=== PATIENT | male | born 1975 | race Caucasian/White ===

== ENCOUNTER 2016-11-03 15:20 | Emergency (ER) | payer OTHER ==
[~2016-11-03] VITALS: Ht 165.1 cm; Wt 90.0 kg
[~2016-11-03 15:20] MED LIST: HYDR-3533 PO
[2016-11-03 15:43] VITALS: BP 129/89; PULSE 78; RESP 18; TEMP 98.8; O2SAT 99
== END 2016-11-03 16:47 | disposition left against medical advice (07) ==
LOC: PHEFT 15:20
DX: S69.91XA Unspecified injury of right wrist, hand and finger(s), initial encounter (principal); X58.XXXA Exposure to other specified factors, initial encounter
CPT/HCPCS: 99281

== ENCOUNTER 2016-11-18 07:46 | Emergency (ER) | payer OTHER ==
[~2016-11-18] VITALS: Ht 167.6 cm; Wt 88.5 kg
[2016-11-18 07:57] VITALS: BP 128/88; PULSE 72; RESP 16; TEMP 98.8; O2SAT 97
--- NOTE | 2016-11-18 08:10 | PD ---
HPI Chief Complaint: Musculoskeletal Complaint Time Seen by Provider: 08:05 Travel History International Travel<30 days: No Contact w/Intl Traveler<30days: No Traveled to known affect area: No History of Present Illness HPI The patient is a 41-year-old male who presents emergency department for finger pain. The patient developed pain located over the proximal interphalangeal joint of the fourth digit on the right hand after he fell off a ladder before 2015. Patient had pain located over the ulnar aspect of the PIP, however, was not evaluated in the emergency department at that time. The patient continues to have pain is worsen movement, minimally alleviated at rest, with mildly limited range of motion. The patient is right- hand dominant. The patient denies any abrasions or lacerations of the affected area. Symptoms are mild to moderate, exacerbated after trauma, and minimally alleviated at rest. PFSH Past Medical History Medical History: Denies Significant Hx Diminished Hearing: No Tetanus Vaccination: > 5 Years Influenza Vaccination: No Past Surgical History Appendectomy: Yes Social History Alcohol Use: No Tobacco Use: No (QUIT 2011) Substance Use: No Allergies-Medications (Allergen,Severity, Reaction): Coded Allergies: No Known Allergies (Unverified , 11/18/16) Reported Meds & Prescriptions Reported Meds & Active Scripts Active No Active Prescriptions or Reported Medications Review of Systems Musculoskeletal: Positive: Pain Skin: No Other (no abrasions or lacerations over the affected area) Neurologic: No: Paresthesia, Sensory Disturbance Physical Exam Narrative GENERAL: Awake, alert, 41-year-old male who appears his stated age and is in no acute respiratory distress. SKIN: Warm and dry. HEAD: Atraumatic. Normocephalic. EYES: No injection or drainage. NECK: Trachea midline. No JVD. MUSCULOSKELETAL: Inspection of fourth digit right hand reveals minimal edema over the proximal interphalangeal joint. The patient is able flex at the MCP, PIP, and DIP. Mild tenderness over the ulnar aspect of the PIP. No obvious bony deformity. Her refills less than 2 seconds. Positive right radial pulse. No erythema or fluctuance noted over the joint. NEUROLOGICAL: Awake and alert. No obvious cranial nerve deficits. Motor grossly within normal limits. Normal speech. PSYCHIATRIC: Appropriate mood and affect; insight and judgment normal. Data Data Last Documented VS Vital Signs Date Time Temp Pulse Resp B/P Pulse Ox O2 Delivery O2 Flow Rate FiO2 11/18/16 07:57 98.8 72 16 128/88 97 Orders Finger (Hpn1new) (11/18/16 ) MDM Medical Decision Making Medical Screen Exam Complete: Yes Emergency Medical Condition: Yes Medical Record Reviewed: Yes Interpretation(s) X-ray of the fourth digit right finger reveals no evidence of acute fracture. Differential Diagnosis Differential diagnosis includes sprain, strain, fracture, contusion, effusion. Narrative Course X-ray of the fourth digit, right hand was obtained. X-ray is negative for fracture. The patient is advised activity as tolerated. Ibuprofen as needed. Follow-up with your primary physician. Return if symptoms worsen or progress. Diagnosis Primary Impression: Finger pain, right Patient Instructions: General Instructions Additional Instructions: Activity as tolerated. Motrin as directed. Follow-up with your primary physician. Return if symptoms worsen or progress. Med/Other Pt SpecificInfo: Prescription(s) given Scripts Ibuprofen 600 Mg [id number] Mg PO Q6H PRN (Pain/Inflammation) #20 TAB Ref 0 Prov:Moise Velez MD 11/18/16 Disposition: 01 DISCHARGE HOME Condition: Stable Moise Velez MD Nov 18, 2016 08:10
--- NOTE | 2016-11-18 08:47 | RADHPO ---
EXAM DATE/TIME: 11/18/2016 08:13 [facility] COMPARISON: No previous studies available for comparison. INDICATIONS : Right 4th digit pain after fall from a ladder. MEDICAL HISTORY : None. SURGICAL HISTORY : None. ENCOUNTER: Initial ACUITY: 1 month PAIN SCORE: 4/10 LOCATION: Right 4th digit FINDINGS: Examination of the fourth digit of the right hand demonstrates no evidence of fracture or dislocation . No radiopaque foreign bodies are seen. The soft tissues are intact. CONCLUSION: 1. There is no evidence of acute fracture. Russell Beltran MD on November 18, 2016 at 8:44 Board Certified Radiologist. This report was verified electronically.
[2016-11-18] MEDS ORDERED: IBUP-232 PO (08:51)
== END 2016-11-18 09:09 | disposition home or self-care (01) ==
LOC: PHED 07:46
DX: M79.644 Pain in right finger(s) (principal); W11.XXXD Fall on and from ladder, subsequent encounter; Y93.9 Activity, unspecified; Y92.59 Other trade areas as the place of occurrence of the external cause
CPT/HCPCS: 73140; 99283

== ENCOUNTER 2016-12-10 16:59 | Emergency (ER) | payer OTHER ==
[~2016-12-10] VITALS: Ht 165.1 cm; Wt 89.0 kg
[~2016-12-10 16:59] MED LIST changes: -HYDR-3533 PO; +IBUP-232 PO
[2016-12-10 17:05] VITALS: BP 116/73; PULSE 72; RESP 16; TEMP 98.3; O2SAT 100
[2016-12-10] MEDS ORDERED: PRED50 PO (18:24)
[2016-12-10] MEDS ORDERED: CYCL1TAB29 PO (18:24)
[2016-12-10] MEDS ORDERED: IBUP800T23 PO (18:24)
--- NOTE | 2016-12-10 18:25 | PD ---
HPI Chief Complaint: Back/ Neck Pain or Injury Time Seen by Provider: 18:11 Travel History International Travel<30 days: No Contact w/Intl Traveler<30days: No Traveled to known affect area: No History of Present Illness HPI Patient is a 41-year-old male presenting to the emergency department for evaluation of left lower back pain that started yesterday. Patient states he has a history of degenerative disc disease. He reports his pain as a 6 out of 10. Patient states he comes to emergency department when it exacerbates him as he does not have a primary doctor. Patient denies any numbness or tingling in his lower extremities, no bladder or bowel incontinence, no saddle paresthesia. He denies any injury or trauma. PFSH Past Medical History Diminished Hearing: No Musculoskeletal: Yes (degenerative disc disease) Tetanus Vaccination: < 5 Years Influenza Vaccination: No Past Surgical History Appendectomy: Yes Social History Alcohol Use: No Tobacco Use: No (QUIT 2011) Substance Use: No Allergies-Medications (Allergen,Severity, Reaction): Coded Allergies: No Known Allergies (Unverified , 12/10/16) Reported Meds & Prescriptions Reported Meds & Active Scripts Active No Active Prescriptions or Reported Medications Review of Systems Except as stated in HPI: all other systems reviewed are Neg Musculoskeletal: Positive: Myalgias, Cramping Physical Exam Narrative GENERAL: Well-nourished, well-developed patient. SKIN: Warm and dry. HEAD: Normocephalic. EYES: No scleral icterus. No injection or drainage. NECK: Supple, trachea midline. No JVD or lymphadenopathy. CARDIOVASCULAR: Regular rate and rhythm without murmurs, gallops, or rubs. RESPIRATORY: Breath sounds equal bilaterally. No accessory muscle use. GASTROINTESTINAL: Abdomen soft, non-tender, nondistended. MUSCULOSKELETAL: No cyanosis, or edema. Tenderness to palpation paraspinal musculature in the lumbar region on the left. 5/5 muscle strength in bilateral lower extremities. No spinal tenderness noted. Neurovascularly intact. BACK: Nontender without obvious deformity. No CVA tenderness. Data Data Last Documented VS Vital Signs Date Time Temp Pulse Resp B/P Pulse Ox O2 Delivery O2 Flow Rate FiO2 12/10/16 17:05 98.3 72 16 116/73 100 MDM Medical Decision Making Medical Screen Exam Complete: Yes Emergency Medical Condition: Yes Interpretation(s) Vital Signs Date Time Temp Pulse Resp B/P Pulse Ox O2 Delivery O2 Flow Rate FiO2 12/10/16 17:05 98.3 72 16 116/73 100 Differential Diagnosis Strain versus sprain versus spasm versus discogenic pain Narrative Course Patient is a 41-year-old male who presents emergency for evaluation of low back pain that started yesterday. There was no injury or trauma. Patient is neurovascularly intact. Patient is neurologically intact. Patient has history of the same pain, when it exacerbates he presents emergency department. Patient will be given prescription for ibuprofen, Flexeril, prednisone. He is encouraged to establish care with a primary doctor for ongoing evaluation and management of his chronic health problems and for routine health care. He was encouraged to alternate heat and ice to affected area, continue range of motion exercises, avoid bed rest. He was further encouraged to avoid exacerbating activities. Patient again should follow-up with the primary doctor. Patient can return to the emergency department for any new or worsening symptoms. Patient is stable for discharge. Diagnosis Primary Impression: Strain of lumbar paraspinal muscle Qualified Code: S39.012A - Strain of lumbar paraspinal muscle, initial encounter Additional Impression: Spasm of lumbar paraspinous muscle Referrals: Primary Care Physician Patient Instructions: General Instructions, Muscle Spasm (ED), Muscle Strain ( ED) Additional Instructions: Follow-up with your primary doctor Return to emergency department for any new or worsening symptoms Take medications as directed Alternate heat and ice to affected area, continue range of motion exercises, avoid exacerbating activities Med/Other Pt SpecificInfo: Prescription(s) given Scripts Prednisone 50 Mg Tab50 Mg PO DAILY #5 TAB Ref 0 Prov:Roxi Elizondo 12/10/16 Cyclobenzaprine (Flexeril)10 Mg Tab10 Mg PO TID PRN (MUSCLE SPASM) 10 Days Ref 0 Prov:Roxi Elizondo 12/10/16 Ibuprofen 800 Mg [id number] Mg PO Q6HR PRN (PAIN) #40 TAB Ref 0 Prov:Roxi Elizondo 12/10/16 Disposition: 01 DISCHARGE HOME Condition: Stable Roxi Elizondo Dec 10, 2016 18:24
== END 2016-12-10 18:33 | disposition home or self-care (01) ==
LOC: PHEFT 16:59
DX: S39.012A Strain of muscle, fascia and tendon of lower back, initial encounter (principal); M51.36 Other intervertebral disc degeneration, lumbar region; X58.XXXA Exposure to other specified factors, initial encounter; Y93.9 Activity, unspecified; Y92.9 Unspecified place or not applicable
CPT/HCPCS: 99283

== ENCOUNTER 2017-02-19 02:11 | Emergency (ER) | payer OTHER ==
[~2017-02-19] VITALS: Ht 165.1 cm; Wt 87.1 kg
[~2017-02-19 02:11] MED LIST changes: +CYCL1TAB29 PO; -IBUP-232 PO; +IBUP800T23 PO; +PRED50 PO
[2017-02-19 02:17] VITALS: BP 133/77; PULSE 72; RESP 18; TEMP 97.6; O2SAT 99
[2017-02-19 02:24] VITALS: BP 133/77; PULSE 72; RESP 18; TEMP 97.6; O2SAT 99
[2017-02-19] MEDS: CYCLOPENTOLATE HCL 1% OPHT SOLN 2 ML BTL LEFT EYE ONE ×2 (02:45→02:55)
[2017-02-19] MEDS ORDERED: PERC5TAB12 PO (03:11)
--- NOTE | 2017-02-19 03:14 | PD ---
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 The patient had initial pain but the pain seemed to get worse and he comes in tonight complaining of pain not just in the eye but around the eye and he feels pain above the mouth and above the eye. PFSH Past Medical History Diminished Hearing: No Musculoskeletal: Yes (degenerative disc disease) Immunizations Current: Yes Tetanus Vaccination: Unknown Influenza Vaccination: No Past Surgical History Appendectomy: Yes Social History Alcohol Use: No Tobacco Use: No (QUIT 2011) Substance Use: No Allergies-Medications (Allergen,Severity, Reaction): Coded Allergies: No Known Allergies (Unverified , 02/19/17) Reported Meds & Prescriptions Reported Meds & Active Scripts Active Review of Systems Except as stated in HPI: all other systems reviewed are Neg Physical Exam Narrative GENERAL: Well-nourished, well-developed patient in moderate apparent distress with his left eye pain. His vital signs are normal. SKIN: Focused skin assessment warm/dry. HEAD: Normocephalic. EYES: The visual acuity is 20/70 in the left eye and 20/40 in the right eye. No scleral icterus. No injection in the right eye but there is injection in the left eye. Fluorescein staining reveals no corneal uptake. Lids/tarsal plate were everted and no foreign body seen. Extraocular movements are normal but the patient has considerable pain when moving the eye nasally and temporarily. There is no diplopia present. The pupil is one millimeter larger on the left than on the right. There is no proptosis present. NECK: Supple, trachea midline. No JVD or lymphadenopathy. CARDIOVASCULAR: Regular rate and rhythm without murmurs, gallops, or rubs. RESPIRATORY: Breath sounds equal bilaterally. No accessory muscle use. GASTROINTESTINAL: Abdomen soft, non-tender, nondistended. MUSCULOSKELETAL: No cyanosis, or edema. BACK: Nontender without obvious deformity. No CVA tenderness. Data Data Last Documented VS Vital Signs Date Time Temp Pulse Resp B/P Pulse Ox O2 Delivery O2 Flow Rate FiO2 4/20/17 02:24 97.6 72 18 133/77 99 Orders Cyclopentolate 1% Opth Soln (Cyclogyl 1% (02/19/17 02:45) MDM Medical Decision Making Medical Screen Exam Complete: Yes Emergency Medical Condition: Yes Medical Record Reviewed: Yes Differential Diagnosis Corneal abrasion, traumatic mydriasis, irritation of extraocular muscles Narrative Course I discussed the patient with Dr. Kerr who is missionary coordinator for ophthalmology tonight. She will see the patient later on today in her office. The patient is to call later on this morning to set up that appointment. He is given Percocet 5 for pain. He is not to drink alcohol or drive with this condition are on the Percocet. The patient's pain appears to be more than I would expect from his physical findings and history. Diagnosis Primary Impression: Trauma to left eye Additional Impression: Traumatic mydriasis Additional Instructions: Later on today it is necessary to call the coin counter and wrapper office to set up an appointment today. I discussed this with the coin counter and wrapper and she will see you in her office today. Do not drink alcohol or drive on the Percocet 5 Med/Other Pt SpecificInfo: Prescription(s) given Scripts Oxycodone-Acetaminophen (Percocet)5-325 mg Tab1-2 Tab PO Q4H PRN (PAIN) #30 TAB Ref 0 Prov:Josh Bailon MD 02/19/17 Disposition: 01 DISCHARGE HOME Condition: Stable Josh Bailon MD Feb 19, 2017 03:14
[2017-02-19] MEDS ORDERED: oxyCODONE/ACETAMINOPHEN 10 MG/325 MG TAB PO ONE (03:15)
[2017-02-19 03:33] VITALS: BP 137/77; PULSE 64; RESP 18; O2SAT 99
[2017-02-19 04:30] VITALS: BP 135/72; PULSE 62; RESP 18; O2SAT 98
== END 2017-02-19 04:46 | disposition home or self-care (01) ==
LOC: PHED 02:11
DX: H57.04 Mydriasis (principal); Z87.891 Personal history of nicotine dependence; W22.8XXA Striking against or struck by other objects, initial encounter; Y93.89 Activity, other specified; Y92.9 Unspecified place or not applicable; Y99.0 Civilian activity done for income or pay
CPT/HCPCS: 99283

== ENCOUNTER 2017-03-26 17:01 | Observation (INO) | payer OTHER ==
[2017-03-26] VITALS (9 sets, daily range): BP systolic 125–142; BP diastolic 72–97; PULSE 58–88; RESP 18–20; TEMP 98.6; O2SAT 94–99
[~2017-03-26 17:01] MED LIST changes: -CYCL1TAB29 PO; -IBUP800T23 PO; +PERC5TAB12 PO; -PRED50 PO
--- NOTE | 2017-03-26 17:15 | PD ---
HPI Chief Complaint: Chest Pain Time Seen by Provider: 17:07 Travel History International Travel<30 days: No Contact w/Intl Traveler<30days: No Traveled to known affect area: No History of Present Illness HPI 41-year-old male complains of chest pain. Patient states that the pain started yesterday afternoon. Patient states that the pain is substernal chest pressure with radiation to the back, to the jaw and to her left shoulder. Patient went to sleep last night and woke up this morning without chest pain. Patient states that the pain came back this morning on the way to work. Patient denies any coughing congestion fever chills. Patient denies any nausea or diaphoresis. Patient denies history of CAD. Patient denies history hypertension, diabetes, dyslipidemia. Patient is a nonsmoker. Patient has family history of heart disease. On a scale of 1-10 the pain is a 6 now. PFSH Past Medical History Medical History: Denies Significant Hx Diminished Hearing: No Musculoskeletal: Yes (degenerative disc disease) Immunizations Current: Yes Influenza Vaccination: No Past Surgical History Appendectomy: Yes Social History Alcohol Use: No ( QUIT 2011) Tobacco Use: No (QUIT 2011) Substance Use: No Allergies-Medications (Allergen,Severity, Reaction): Coded Allergies: No Known Allergies (Unverified , 03/26/17) Reported Meds & Prescriptions Reported Meds & Active Scripts Active No Active Prescriptions or Reported Medications Review of Systems General / Constitutional: No: Fever Eyes: No: Visual changes HENT: No: Headaches Cardiovascular: Positive: Chest Pain or Discomfort Respiratory: No: Shortness of Breath Gastrointestinal: No: Abdominal Pain Genitourinary: No: Dysuria Musculoskeletal: No: Pain Skin: No Rash Neurologic: No: Weakness Psychiatric: No: Depression Endocrine: No: Polydipsia Hematologic/Lymphatic: No: Easy Bruising Physical Exam Narrative GENERAL: Well-nourished, well-developed patient. SKIN: Focused skin assessment warm/dry. HEAD: Normocephalic. EYES: No scleral icterus. No injection or drainage. NECK: Supple, trachea midline. No JVD or lymphadenopathy. CARDIOVASCULAR: Regular rate and rhythm without murmurs, gallops, or rubs. RESPIRATORY: Breath sounds equal bilaterally. No accessory muscle use. GASTROINTESTINAL: Abdomen soft, non-tender, nondistended. MUSCULOSKELETAL: No cyanosis, or edema. BACK: Nontender without obvious deformity. No CVA tenderness. Neurologic exam normal. Data Data Last Documented VS Vital Signs Date Time Temp Pulse Resp B/P Pulse Ox O2 Delivery O2 Flow Rate FiO2 03/26/17 19:03 58 20 Room Air 03/26/17 19:03 125/80 98 03/26/17 17:06 98.6 Orders Electrocardiogram (03/26/17 17:07) Complete Blood Count With Diff (03/26/17 17:07) Comprehensive Metabolic Panel (03/26/17 17:07) Creatine Kinase (Cpk) (03/26/17 17:07) Troponin I (03/26/17 17:07) Prothrombin Time / Inr (Pt) (03/26/17 17:07) Act Partial Throm Time (Ptt) (03/26/17 17:07) D-Dimer (03/26/17 17:07) Chest, Single Ap (03/26/17 17:07) Iv Access Insert/Monitor (03/26/17 17:07) Ecg Monitoring (03/26/17 17:07) Oximetry (03/26/17 17:07) Ct Pulmonary Angiogram (03/26/17 17:07) Aspirin (Aspirin) (03/26/17 17:30) Iohexol 350 Inj (Omnipaque 350 Inj) (03/26/17 18:13) Activity Bed Rest With Brp (03/26/17 18:56) Vital Signs (Adult) Q4H (03/26/17 18:56) Cardiac Rhythm .As Directed (03/26/17 18:56) Notify Dr: Other .PRN (03/26/17 18:56) Notify Parameters (03/26/17 18:56) Resp Oxygen Nasal Cannula (03/26/17 ) Diet Heart Healthy (03/26/17 Dinner) Ckmb (Isoenzyme) Profile (03/26/17 20:05) Ckmb (Isoenzyme) Profile (03/26/17 23:05) Troponin I (03/26/17 20:05) Troponin I (03/26/17 23:05) Electrocardiogram (03/26/17 20:05) Electrocardiogram (03/26/17 23:05) ^ Obtain (03/26/17 18:56) Sodium Chloride 0.9% Flush (Ns Flush) (03/26/17 19:00) Sodium Chloride 0.9% Flush (Ns Flush) (03/26/17 21:00) Acetaminophen (Tylenol) (03/26/17 19:00) Ondansetron Inj (Zofran Inj) (03/26/17 19:00) Policy Value Calculator / Telemetry PILAR.Q8H (03/26/17 18:56) Morphine Inj (Morphine Inj) (03/26/17 19:15) Ondansetron Inj (Zofran Inj) (03/26/17 19:15) Labs Laboratory Tests Test 03/26/17 17:05 White Blood Count 7.7 TH/MM3 Red Blood Count 4.69 MIL/MM3 Hemoglobin 14.3 GM/DL Hematocrit 42.5 % Mean Corpuscular Volume 90.6 FL Mean Corpuscular Hemoglobin 30.5 PG Mean Corpuscular Hemoglobin 33.7 % Concent Red Cell Distribution Width 13.0 % Platelet Count 260 TH/MM3 Mean Platelet Volume 7.9 FL Neutrophils (%) (Auto) 55.1 % Lymphocytes (%) (Auto) 34.0 % Monocytes (%) (Auto) 7.1 % Eosinophils (%) (Auto) 3.1 % Basophils (%) (Auto) 0.7 % Neutrophils # (Auto) 4.3 TH/MM3 Lymphocytes # (Auto) 2.6 TH/MM3 Monocytes # (Auto) 0.5 TH/MM3 Eosinophils # (Auto) 0.2 TH/MM3 Basophils # (Auto) 0.1 TH/MM3 CBC Comment DIFF FINAL Differential Comment Prothrombin Time 10.4 SEC Prothromb Time International 0.9 RATIO Ratio Activated Partial 27.5 SEC Thromboplast Time D-Dimer Quantitative (PE/DVT) LESS THAN 0.19 MG/L FEU Sodium Level 143 MEQ/L Potassium Level 3.6 MEQ/L Chloride Level 108 MEQ/L Carbon Dioxide Level 26.8 MEQ/L Anion Gap 8 MEQ/L Blood Urea Nitrogen 13 MG/DL Creatinine 1.20 MG/DL Estimat Glomerular Filtration 66 ML/MIN Rate Random Glucose 106 MG/DL Calcium Level 8.8 MG/DL Total Bilirubin 0.3 MG/DL Aspartate Amino Transf 22 U/L (AST/SGOT) Alanine Aminotransferase 35 U/L (ALT/SGPT) Alkaline Phosphatase 97 U/L Total Creatine Kinase 296 U/L Troponin I LESS THAN 0.02 NG/ML Total Protein 7.3 GM/DL Albumin 4.2 GM/DL MDM Medical Decision Making Medical Screen Exam Complete: Yes Emergency Medical Condition: Yes Interpretation(s) 1715 p.m. EKG shows sinus rhythm nonspecific ST-T wave change. 1748 PM. Chest x-ray shows no acute disease. CBC within normal limit. CMP within normal limit. Cardiac enzymes are normal. 1850 1 PM. Last Impressions Chest X-Ray 03/26/171706 Signed Impressions: Service Date/Time: March 17:24 - CONCLUSION: No acute disease. Mg Haywood MD CT Angiography 03/26/171706 Signed Impressions: Service Date/Time: March 18:02 - CONCLUSION: Negative. No pulmonary embolus or other acute abnormality demonstrated. Mg Davenport MD Differential Diagnosis Differential diagnosis including angina, ND, PE, pneumothorax. Narrative Course 41-year-old male with substernal chest pain. Aspirin 325 mg by mouth given. Patient will be admitted to the chest pain center. Diagnosis Primary Impression: Chest pain Qualified Code: R07.9 - Chest pain, unspecified type Admitting Information Admitting Physician Requests: Observation Scripts No Active Prescriptions or Reported Meds Singh Bradley MD March 26, 2017 17:15
[2017-03-26 17:21] LABS: AUTOMATED NEUTROPHIL # 4.3 TH/MM3 (1.8-7.7); BASOPHIL # 0.1 TH/MM3 (0-0.2); BASOPHIL % 0.7 % (0.0-2.0); EOSINOPHIL # 0.2 TH/MM3 (0-0.4); EOSINOPHIL % 3.1 % (0.0-4.0); HEMATOCRIT 42.5 % (39.0-51.0); HEMO FLAGS DIFF FINAL; LYMPHOCYTE # 2.6 TH/MM3 (1.0-4.8); MEAN CELL VOLUME 90.6 FL (80.0-100.0); MEAN CORPUSCULAR HEMOGLOBIN 30.5 PG (27.0-34.0); MEAN CORPUSCULAR HGB CONC 33.7 % (32.0-36.0); MONO % 7.1 % (0.0-8.0); NEUT % 55.1 % (16.0-70.0); PLATELET COUNT 260 TH/MM3 (150-450); RED BLOOD COUNT 4.69 MIL/MM3 (4.50-5.90); WHITE BLOOD COUNT 7.7 TH/MM3 (4.0-11.0)
[2017-03-26 17:29] LABS: CHLORIDE 108 MEQ/L (98-107); POTASSIUM 3.6 MEQ/L (3.5-5.1); SODIUM (NA) 143 MEQ/L (136-145)
[2017-03-26] MEDS ORDERED: ASPIRIN 325 MG TAB PO ONE (17:30)
[2017-03-26 17:34] LABS: ANION GAP 8 MEQ/L (5-15); BICARBONATE 26.8 MEQ/L (21.0-32.0)
[2017-03-26 17:35] LABS: BLOOD UREA NITROGEN 13 MG/DL (7-18)
[2017-03-26 17:37] LABS: ALT (GPT) 35 U/L (12-78)
[2017-03-26 17:38] LABS: AST (GOT) 22 U/L (15-37); GLOMERULAR FILTRATION RATE 66 ML/MIN (>89)
[2017-03-26 17:39] LABS: APTT (PATIENT) 27.5 SEC (24.3-30.1); INTERNATIONAL NORMALIZED RATIO 0.9 RATIO; PROTHROMBIN TIME - PATIENT 10.4 SEC (9.8-11.6); TOTAL BILIRUBIN ADULT 0.3 MG/DL (0.2-1.0)
[2017-03-26 17:40] LABS: ALKALINE PHOSPHATASE 97 U/L (45-117); CREATINE KINASE 296 U/L (39-308)
--- NOTE | 2017-03-26 17:41 | RADHPO ---
EXAM DATE/TIME: 03/26/2017 17:24 [facility] COMPARISON: No previous studies available for comparison. INDICATIONS : Patient has had chest pain since yesterday. MEDICAL HISTORY : None. SURGICAL HISTORY : Appendectomy. ENCOUNTER: Initial ACUITY: 1 day PAIN SCORE: 6/10 LOCATION: Left chest FINDINGS: A single view of the chest demonstrates the lungs to be symmetrically aerated without evidence of mas s, infiltrate or effusion. The cardiomediastinal contours are unremarkable. Osseous structures are intact. CONCLUSION: No acute disease. Mg Haywood MD on March 26, 2017 at 17:39 Board Certified Radiologist. This report was verified electronically.
[2017-03-26] MEDS ORDERED: IOHEXOL 350 MG/ML 10 ML VIAL (for RAD DIAG) IV ONE (18:13)
--- NOTE | 2017-03-26 18:28 | RADHPO ---
EXAM DATE/TIME: 03/26/2017 18:02 [facility] COMPARISON: No previous studies available for comparison. INDICATIONS : Substernal chest pain. IV CONTRAST: 74 cc Omnipaque 350 (iohexol) IV RADIATION DOSE: 17.75 CTDIvol (mGy) MEDICAL HISTORY : None SURGICAL HISTORY : Appendectomy. ENCOUNTER: Initial ACUITY: 1 day PAIN SCALE: 4/10 LOCATION: substernal. TECHNIQUE: Volumetric scanning of the chest was performed using a pulmonary embolism protocol MIP images were re constructed. Using automated exposure control and adjustment of the mA and/or kV according to patien t size, radiation dose was kept as low as reasonably achievable to obtain optimal diagnostic quality images. FINDINGS: PULMONARY ARTERIES: No filling defects are seen in the pulmonary arteries through the segmental level. LUNGS: There is no consolidation or pneumothorax . No concerning pulmonary nodule is visualized. PLEURAE: There is no pleural thickening or pleural effusion. MEDIASTINUM: There is good visualization of the great vessels of the middle mediastinum. No evidence of mediastin al or hilar adenopathy/mass. MUSCULOSKELETAL: Within normal limits for patient age. MISCELLANEOUS: The visualized upper abdominal organs demonstrate no acute abnormality. CONCLUSION: Negative. No pulmonary embolus or other acute abnormality demonstrated. Mg Davenport MD on March 26, 2017 at 18:26 Board Certified Radiologist. This report was verified electronically.
[2017-03-26] MEDS ORDERED: SODIUM CHLORIDE 0.9% FLUSH 10 ML FLUSH IV FLUSH PRN (19:00)
[2017-03-26] MEDS ORDERED: ONDANSETRON HCL 4 MG/2 ML VIAL IV PRN (19:00)
[2017-03-26] MEDS ORDERED: ACETAMINOPHEN 500 MG CPLT PO PRN (19:00)
[2017-03-26] MEDS ORDERED: ONDANSETRON HCL 4 MG/2 ML VIAL IV PUSH ONE (19:15)
[2017-03-26] MEDS ORDERED: MORPHINE SULFATE 4 MG/ML INJ IV PUSH ONE (19:15)
[2017-03-26] MEDS ORDERED: SODIUM CHLORIDE 0.9% FLUSH 10 ML FLUSH PRN (20:00)
[2017-03-26 20:29] LABS: CREATINE KINASE 256 U/L (39-308)
[2017-03-26 20:41] LABS: CKMB 1.9 NG/ML (0.5-3.6)
[2017-03-26] MEDS ORDERED: SODIUM CHLORIDE 0.9% FLUSH 10 ML FLUSH IV FLUSH SCH ×2 (21:00)
[2017-03-26 23:50] LABS: CREATINE KINASE 214 U/L (39-308)
[2017-03-27 00:02] LABS: CKMB 1.5 NG/ML (0.5-3.6)
[2017-03-27 04:00] VITALS: BP 88/59; PULSE 65; RESP 20; TEMP 96.7; O2SAT 97
--- NOTE | 2017-03-27 07:41 | HHI.HP ---
[facility] Service [facility] Primary Care Physician No Primary Care Physician Admission Diagnosis chest pain Diagnoses: (1) Chest pain Diagnosis: Principal Chief Complaint: Chest pain Travel History International Travel<30 Days: No Contact w/Intl Traveler <30 Da: No Traveled to Known Affected Are: No History of Present Illness Written by Danial Bailon, acting as scribe for Dr. Lehman on 03/27/17 at 07: 18. 41 year-old male with no chronic medical illnesses who presented to hospital because of chest pain. Patient states that his pain started 2 days ago and was located in the center part of his chest and radiating into his back and left side of his neck. He denies any nausea, vomiting, diaphoresis, shortness of breath, lightheadedness, dizziness. He states that the pain initially started after got out of the shower 2 nights ago and it is located in central part of chest radiating to the back on a scale of 6/10 characterized as a tightness sensation. The pain has been persistent with increased intensity whenever he gets under stress. Patient denies any previous cardiac workup. Patient had workup done emergency department and it was recommended by the ER physician that the patient be observed in the chest pain center. Review of Systems Constitutional: DENIES: Diaphoretic episodes, Fatigue, Fever, Weight gain, Weight loss, Chills, Dizziness, Change in appetite, Night Sweats Eyes: DENIES: Blurred vision, Diplopia, Eye inflammation, Eye pain, Vision loss , Double Vision Ears, nose, mouth, throat: DENIES: Vertigo, Nasal discharge, Throat pain, Ear Pain, Running Nose, Sinus Pain Respiratory: DENIES: Apneas, Cough, Snoring, Wheezing, Hemoptysis, Sputum production, Shortness of breath Cardiovascular: COMPLAINS OF: Chest pain, DENIES: Palpitations, Syncope, Dyspnea on Exertion, Lower Extremity Edema, Orthopnea Gastrointestinal: DENIES: Abdominal pain, Black stools, Bloody stools, Constipation, Diarrhea, Nausea, Vomiting, Difficulty Swallowing, Anorexia Neurologic: DENIES: Abnormal gait, Headache, Localized weakness, Paresthesias, Seizures, Speech Problems, Tremor, Poor Balance Past Family Social History Past Medical History No chronic medical illnesses Past Surgical History Appendectomy Nose surgery Reported Medications Reported Meds & Active Scripts Active No Active Prescriptions or Reported Medications Allergies: Coded Allergies: No Known Allergies (Unverified , 03/26/17) Family History Reviewed is significant for mother with some form of heart disease, family history significant for cancer Social History Patient quit smoking in 2012, prior to that he smoked 1-1/2 pack a cigarettes a day since he was 9 years old. He does continue to use smokeless tobacco since he was 11 years old. Patient quit drinking alcohol in 2011. He also states he quit using drugs in 2012, patient did not elicit exactly which drugs he used Physical Exam Vital Signs Vital Signs Date Time Temp Pulse Resp B/P Pulse Ox O2 Delivery O2 Flow Rate FiO2 03/26/17 23:41 70 03/26/17 23:28 62 2 129/74 98 03/26/17 22:00 74 20 137/72 98 03/26/17 21:00 62 20 125/80 98 03/26/17 19:25 20 03/26/17 19:03 58 20 Room Air 03/26/17 19:03 58 20 125/80 98 03/26/17 19:01 94 03/26/17 18:40 88 18 140/91 95 Room Air 03/26/17 18:38 77 03/26/17 17:12 81 18 127/81 99 Room Air 03/26/17 17:08 79 99 Room Air 03/26/17 17:06 98.6 78 18 142/97 98 Physical Exam GENERAL: Well-developed, well-nourished, in no acute distress. alert and orientated HEENT: Head is normocephalic without any lesions or masses noted. Facial features are symmetric. Eyes: Pupils equal round reactive to light. Extraocular muscles are intact. Conjunctivae were clear. Oropharyngeal: Pharynx without any erythema edema. Tongue is midline without deviation. Buccal mucosa is moist without any masses or lesions NECK: Supple without any masses. Trachea midline no deviation. No JVD, no bruits are appreciated CARDIAC: Regular rhythm, regular rate. S1/S2 are heard. No murmurs gallops or rubs. Mild reproducible tenderness on sternal palpation LUNGS: Clear to auscultation bilaterally. No wheeze, rhonchi or rales. No use of accessory muscles on inspiration or expiration. ABDOMEN: Soft, nontender. Nondistended. Bowel sounds heard in all 4 quadrants. No organomegaly or masses. Negative rebound, negative guarding EXTREMITIES: No edema, pulses are equal bilaterally. No cyanosis or clubbing NEUROLOGY: Mood and affect appear appropriate. Cranial nerves II through XII grossly intact. Muscle strength 5/5 in upper and lower extremities bilaterally. Deep tendon reflexes are 2+ in upper and lower extremities bilaterally. Laboratory Laboratory Tests Test 03/26/17 03/26/17 03/26/17 17:05 20:00 23:25 White Blood Count 7.7 Red Blood Count 4.69 Hemoglobin 14.3 Hematocrit 42.5 Mean Corpuscular Volume 90.6 Mean Corpuscular Hemoglobin 30.5 Mean Corpuscular Hemoglobin 33.7 Concent Red Cell Distribution Width 13.0 Platelet Count 260 Mean Platelet Volume 7.9 Neutrophils (%) (Auto) 55.1 Lymphocytes (%) (Auto) 34.0 Monocytes (%) (Auto) 7.1 Eosinophils (%) (Auto) 3.1 Basophils (%) (Auto) 0.7 Neutrophils # (Auto) 4.3 Lymphocytes # (Auto) 2.6 Monocytes # (Auto) 0.5 Eosinophils # (Auto) 0.2 Basophils # (Auto) 0.1 CBC Comment DIFF FINAL Differential Comment Prothrombin Time 10.4 Prothromb Time International 0.9 Ratio Activated Partial 27.5 Thromboplast Time D-Dimer Quantitative (PE/DVT) LESS THAN 0.19 Sodium Level 143 Potassium Level 3.6 Chloride Level 108 Carbon Dioxide Level 26.8 Anion Gap 8 Blood Urea Nitrogen 13 Creatinine 1.20 Estimat Glomerular Filtration 66 Rate Random Glucose 106 Calcium Level 8.8 Total Bilirubin 0.3 Aspartate Amino Transf 22 (AST/SGOT) Alanine Aminotransferase 35 (ALT/SGPT) Alkaline Phosphatase 97 Total Creatine Kinase 296 256 214 Troponin I LESS THAN 0.02 LESS THAN 0.02 LESS THAN 0.02 Total Protein 7.3 Albumin 4.2 Creatine Kinase MB 1.9 1.5 Result Diagram: 03/26/17170403/26/171704 Imaging Last Impressions Chest X-Ray 03/26/171706 Signed Impressions: Service Date/Time: March 17:24 - CONCLUSION: No acute disease. Mg Haywood MD CT Angiography 03/26/17 1707 Signed Impressions: Service Date/Time: March 18:02 - CONCLUSION: Negative. No pulmonary embolus or other acute abnormality demonstrated. Mg Davenport MD Assessment and Plan Assessment and Plan Chest pain Patient with increased risk factors include history of tobacco use, family history of heart disease Patient been ruled out for any acute coronary event with serial cardiac enzymes which are negative Patient had serial EKGs which indicate sinus rhythm without any changes - CTA negative in the ED. We'll pursue exercise stress test rule out any underlying ischemia Patient was given aspirin emergency department yesterday. Patient continued on oxygen continue monitoring telemetry DVT prevention Low risk, early ambulation Discharge disposition Discharge home in stable condition Activity: Ad sarah. Diet: Healthy heart diet Medications per medication reconciliation Follow-up with primary medical doctor in one week Discussed Condition With This note was transcribed by emmanuelle Bailon. I, Dr. Albert Lehman personally performed the history, physical exam, and medical decision making; and confirmed the accuracy of the information in the transcribed note. Authenticated by Dr. Albert Lehman on 03/27/17 at 10:57. Problem Qualifiers (1) Chest pain: Qualified Code: R07.9 - Chest pain, unspecified type Danial Bailon March 27, 2017 07:41 Albert Lehman DO March 27, 2017 10:57
[2017-03-27 08:00] VITALS: BP 114/73; PULSE 53; PULSE 62; RESP 16; TEMP 96.3; O2SAT 96
[2017-03-27 09:48] VITALS: O2SAT 98
--- NOTE | 2017-03-27 10:39 | HHI.DCPOC ---
Discharge Care Plan Diagnosis: (1) Chest pain Goals to Promote Your Health * To prevent worsening of your condition and complications * To maintain your health at the optimal level Directions to Meet Your Goals Take your medications as prescribed Follow your dietary instruction Follow activity as directed Keep your appointments as scheduled Take your immunizations and boosters as scheduled If your symptoms worsen call your PCP, if no PCP go to Urgent Care Center or Emergency Room Smoking is Dangerous to Your Health. Avoid second hand smoke Call the 24-hour hour crisis hotline for domestic abuse at Danial Bailon March 27, 2017 10:39
[2017-03-27 12:00] VITALS: BP 120/79; PULSE 66; RESP 16; TEMP 96.7; O2SAT 96
--- NOTE | 2017-03-27 12:50 | EKG ---
Date Performed: 03/26/2017 Time Performed: 23:14:44 PTAGE: 41 years EKG: Sinus bradycardia Septal T wave changes are nonspecific Borderline ECG PREVIOUS TRACING : 03/26/2017 19.58 Since previous tracing, no significant change noted DOCTOR: Russell Godoy Interpretating Date/Time 03/27/2017 12:49:23
--- NOTE | 2017-03-27 12:51 | EKG ---
Date Performed: 03/26/2017 Time Performed: 16:58:32 PTAGE: 41 years EKG: Sinus rhythm Normal ECG NO PREVIOUS TRACING DOCTOR: Russell Godoy Interpretating Date/Time 03/27/2017 12:50:53
--- NOTE | 2017-03-27 12:51 | EKG ---
Date Performed: 03/26/2017 Time Performed: 19:58:06 PTAGE: 41 years EKG: Sinus bradycardia Septal T wave changes are nonspecific Borderline ECG PREVIOUS TRACING : 03/26/2017 16.58 Since previous tracing, no significant change noted DOCTOR: Russell Godoy Interpretating Date/Time 03/27/2017 12:50:22
--- NOTE | 2017-03-27 12:57 | TR ---
Date Performed: 03/27/2017 Time Performed: 10:08:45 DOCTOR: Russell Godoy DRUG LIST: CLINICAL HISTORY: REASON FOR TEST: Chest pain REASON FOR ENDING: Completed Protocol OBSERVATION: Arrhythmia: None Chest Pain: None CONCLUSION: Patient tolerated RORY protocol with Total Exercise Time=10:07 Maximum EQ=764 % Max HR Achieved=90.0% Maximum XQ=153/80, Patient was asymptomatic throughout testing. Testing stopped se condary to goals acheived, During peak exercise patient had quick upsloping st segments. HR and BP ap ropriate response to exercise, Recovery period, patient HR and BP returned to baseline COMMENTS: Patient exercised using the Rory protocol. No electrocardiographic changes were seen to suggest ischemia. Hemodynamic response to exercise was normal. No significant arrhythmia was prese nt.
== END 2017-03-27 12:44 | disposition home or self-care (01) ==
LOC: PHED 17:01 → PHEDA 19:10 → PH3A 23:38
PROVIDERS: ADMIT Hospitalist; ATTEND Hospitalist
DX: R07.2 Precordial pain (principal); Z82.49 Family history of ischemic heart disease and other diseases of the circulatory system; Z72.0 Tobacco use
CPT/HCPCS: 71010; 71275; 80053; 82550; 82552; 84484; 85025; 85379; 85610; 85730; 93005; 93017; 96374; 96375; 99285; G0378; J2270; J2405; Q9967